=== PATIENT | female | born 1950 | race Caucasian/White ===

== ENCOUNTER 2018-11-05 08:21 | Day surgery (SDC) | payer MEDICARE, BC ==
[~2018-11-05] VITALS: Ht 167.6 cm; Wt 58.1 kg
[~2018-11-05 08:21] MED LIST: BENTYL20 MG; DAILY VITAMIN1 EAC2 PO; FISH OIL 1,0001 EAC1 PO; FLUTICASONE PRO16 GM NAS; LIPITOR20 MG PO; LOTRONEX0.5 MG PO; PANTOPRAZOLE SO40 MG PO; SUCRALFATE1 GM PO; VIBERZI75 MG PO; VITAMIN D32000 UNIT PO; ZOCOR40 MG PO; ZYRTEC10 MG PO; [UNRECOGNIZED DRUG - OTHER] PO
[2018-11-05] MEDS ORDERED: PRESERVISION A1 EAC1 PO (08:38)
[2018-11-05] MEDS ORDERED: OMEGA 3 FISH O1 EACH PO (08:39)
[2018-11-05] MEDS ORDERED: CENTRUM SILVER1 EAC3 PO (08:39)
[2018-11-05] MEDS ORDERED: VITAMIN D35000 UNIT PO (08:40)
--- NOTE | 2018-11-05 10:16 | NUR ---
11/05/18 1016 Izzy Fuentes 1013-PATIENT ARRIVED TO PACU ON 3L NC PLACED ON 2L NC RR EVEN. PATIENT REACTIVE TO VOICE OPENS EYES ENCOURAGED TO PASS GAS. PATIENT LAYING LEFT LATERAL ABDOMEN SOFT
--- NOTE | 2018-11-06 09:27 | OR ---
[facility] [address] [place], [place] [address] Signed DATE OF OPERATION: 11/05/2018 SURGEON: Jennifer Kaba MD PREOPERATIVE DIAGNOSES: 1. Personal history of colonic polyps 2012. 2. Diverticulosis. 3. Irritable bowel syndrome with intermittent diarrhea. POSTOPERATIVE DIAGNOSES: 1. 4 mm rectal polyps x2 at 6 cm. 2. Minimal to moderate sigmoid diverticulosis. PROCEDURE: Colonoscopy with hot biopsy. ESTIMATED BLOOD LOSS: None. INDICATIONS: Leticia is a 68-year-old female, who had an adenomatous polyp removed from her colon back in 2012. She is known to have moderate sigmoid diverticulosis. She gives no family history of colon cancer or polyps. In the meantime, she has no lower GI complaints. She returns now for followup. I gave her a pamphlet in the office on colonoscopy and we looked at that together along with the risks including, but not limited to gas bloating, crampy abdominal pain, bleeding, perforation, requiring surgery, and missed diagnosis. We also discussed the need for IV conscious sedation. She had expressed understanding and wished to proceed. PROCEDURE NOTE: Leticia was taken into the endoscopy suite and placed in the left lateral decubitus position. She was given 150 mcg of fentanyl and 9 mg of Versed to cover the case. A digital rectal exam was performed and this was unremarkable. The adult colonoscope was then introduced and advanced under direct visualization of camera without difficulty. Her prep was good. She has a long redundant colon and it took some extra sedation and extra abdominal compression with carefully passing the scope back and forth until we were into the cecum itself. She had very minimal liquid stool, which we were able to irrigate out quite nicely. We could easily see the lovelock's foot and the appendiceal orifice along with the ileocecal valve. The scope was then slowly withdrawn. She does have moderate sigmoid diverticulosis. Again, they were moderate in size, moderate in Electronically Signed By: JENNIFER KABA MD 11/06/18 0927 PATIENT NAME: LETICIA LUNDBERG OPERATIVE REPORT DATE OF : 48 REPORT #: [id number] PHYSICIAN: JENNIFER KABA MD PCP: FANNIE THOMSON MD REPORT IS CONFIDENTIAL AND NOT TO BE RELEASED WITHOUT AUTHORIZATION [facility] [address] [place] [id number] Signed number, and scattered about. She has quite a bit of redundancy throughout the entire colon. Once in the rectum, she had two tiny polyps just above the anal canal. We removed those easily with hot biopsy forceps. Upon retroflexion of the scope, there was no additional pathology noted above the anal canal. After this, the gas was suctioned out and the colonoscope removed. Leticia tolerated the procedure quite well. RECOMMENDATIONS: Leticia will follow up in my office in 7 to 14 days to review her pathology results. Jennifer Kaba MD ALB/MODL /[id number] cc: MD Dr. Fannie Lim Copies: JENNIFER KABA MD ~ Electronically Signed By: JENNIFER KABA MD 11/06/18 0927 PATIENT NAME: LETICIA LUNDBERG OPERATIVE REPORT DATE OF : 48 REPORT #: [id number] PHYSICIAN: JENNIFER KABA MD PCP: FANNIE THOMSON MD REPORT IS CONFIDENTIAL AND NOT TO BE RELEASED WITHOUT AUTHORIZATION
== END 2018-11-05 11:15 | disposition home or self-care (01) ==
LOC: OPS 08:21 → DS 08:21 → OPS 11:15
PROVIDERS: Colon & Rectal Surgery
PROC: 0DBP8ZZ Excision of Rectum, Via Natural or Artificial Opening Endoscopic (ICD-10-PCS; principal; 2018-11-05 09:45)
DX: Z12.11 Encounter for screening for malignant neoplasm of colon (principal); K62.1 Rectal polyp; K57.30 Diverticulosis of large intestine without perforation or abscess without bleeding; I10 Essential (primary) hypertension; E78.00 Pure hypercholesterolemia, unspecified; M19.90 Unspecified osteoarthritis, unspecified site; F17.210 Nicotine dependence, cigarettes, uncomplicated; Z88.0 Allergy status to penicillin; Z98.890 Other specified postprocedural states; Z79.899 Other long term (current) drug therapy; Z86.010 Personal history of colon polyps
CPT/HCPCS: 88305; 99153; G0500; J2250; J3010; J7120

== ENCOUNTER 2020-03-21 08:18 | Day surgery (SDC) | payer MEDICARE, BC ==
[~2020-03-21] VITALS: Ht 165.1 cm; Wt 55.3 kg
[~2020-03-21 08:18] MED LIST changes: +CALCIUM + D3 E1 EACH PO; +CENTRUM SILVER1 EAC3 PO; +CHANTIX1 MG PO; +FOSAMAX70 MG PO; +OMEGA 3 FISH O1 EACH PO; +OMEPRAZOLE20 MG PO; +PRESERVISION A1 EAC1 PO; +PRESERVISION A1 EAC3 PO; +VITAMIN D35000 UNIT PO
[2020-03-21] MEDS ORDERED: TYLENOL EXTRA500 MG PO (08:34)
--- NOTE | 2020-03-21 10:14 | NUR ---
03/21/20 1014 Mimi Sampson 1011 PATIENT ARRIVES TO PACU AWAKE, BUT DROWSY. RESP EVEN AND UNLABORED. NC 2L TURNED OFF ON ARRIVAL TO PACU. PATIENT DENIES PAIN OR NAUSEA.
--- NOTE | 2020-03-22 07:46 | OR ---
[facility] [address] [place], [place] [address] Signed DATE OF OPERATION: 03/21/2020 SURGEON: Jennifer Kaba MD PREOPERATIVE DIAGNOSES: 1. Epigastric abdominal pain. 2. Irritable bowel syndrome. 3. Diarrhea. 4. Anorexia. 5. Gastroesophageal reflux disease. POSTOPERATIVE DIAGNOSIS: Mild gastritis. PROCEDURES: EGD with CLOtest and biopsies of the duodenum, pyloric bulb, antrum, and distal esophagus. ESTIMATED BLOOD LOSS: None. INDICATIONS: Leticia is a 69-year-old female, who was asked to see me for upper endoscopy. She has been having epigastric abdominal pain. She said it is usually worse with in 20 to 30 minutes of eating a meal. Her gallbladder ultrasound was unremarkable. The HIDA scan was also unremarkable. Her gallbladder ejection fraction was actually 83% without reproduction of symptoms. She also uses Prilosec for acid reflux. She had several colonoscopies and never had an upper endoscopy. She said the pain is enough that it has decreased her oral intake. In the office, I gave her a pamphlet on upper endoscopy. We reviewed the nature of the test along with the risks including, but not limited to gas bloating, crampy abdominal pain, bleeding, perforation requiring surgery, and missed diagnosis. We also discussed the need for IV conscious sedation, she had expressed understanding and wished to proceed. DESCRIPTION OF PROCEDURE: Leticia was taken into our endoscopy suite and placed in a supine semi-recumbent position. The posterior oropharynx was anesthetized with Hurricaine spray. A bite block was utilized for the case. She was given a total of 4 mg of Versed and 100 mcg of fentanyl to cover the case. The adult gastroscope was introduced and advanced quite readily out into the third portion of the duodenum under direct visualization of camera without Electronically Signed By: JENNIFER KABA MD 03/22/20 0746 PATIENT NAME: LETICIA LUNDBERG OPERATIVE REPORT DATE OF : 48 REPORT #: [id number] PHYSICIAN: JENNIFER KABA MD PCP: JONA IRELADN DO REPORT IS CONFIDENTIAL AND NOT TO BE RELEASED WITHOUT AUTHORIZATION [facility] [address] [place], [place] [address] Signed difficulty. We took a biopsy of the duodenum for the history of diarrhea. We also took a biopsy of the pyloric channel in the antrum for pathologic review. She may have some very mild gastritis. Mostly appears atrophic. We took an additional biopsy from the antrum for CLOtest. Upon retroflexion of scope, we did not see a hiatal hernia. There was no gastric or esophageal varices. No ulcerations. The scope was withdrawn up through the GE junction, which was compliant without stricture. Very minimal disruption to her Z-line. No Rodriguez's mucosa. Really, no distal, middle and upper esophagitis. We went ahead and took an additional biopsy of the distal esophagus for pathologic review given her history of acid reflux. After this, the gas was suctioned out and the gastroscope removed. Leticia tolerated the procedure quite well. RECOMMENDATIONS: I will see Leticia back in my office in 7 to 14 days to review her results. Jennifer Kaba MD ALB/MODL /[id number] cc: MD Jona Lim DO Copies: JENNIFER KABA MD, ARIAN DO ~ Electronically Signed By: JENNIFER KABA MD 03/22/20 0746 PATIENT NAME: LETICIA LUNDBERG OPERATIVE REPORT DATE OF : 48 REPORT #: [id number] PHYSICIAN: JENNIFER KABA MD PCP: JONA IRELAND DO REPORT IS CONFIDENTIAL AND NOT TO BE RELEASED WITHOUT AUTHORIZATION
--- NOTE | 2020-03-22 14:40 | PATH ---
[facility] [address] [place], [place] [address] Signed SPECIMEN(S): A DUODENAL BIOPSY SPECIMEN(S): B PYLORIC BULB SPECIMEN(S): C ANTRUM/ANTRAL BIOPSY SPECIMEN(S): D LOWER ESOPHAGUS SPECIMEN SOURCE: A. DUODENAL BIOPSY B. PYLORIC BULB C. ANTRUM/ANTRAL BIOPSY D. LOWER ESOPHAGUS CLINICAL HISTORY: Abdominal pain, reflux, diarrhea. DX: Mild gastritis MICROSCOPIC DESCRIPTION: Histologic sections of all submitted blocks are examined by light microscopy. These findings, together with the gross examination, support the pathologic diagnosis. FINAL PATHOLOGIC DIAGNOSIS: A. Duodenum, biopsy: - Duodenal mucosa with no histopathologic abnormality. - Negative for dysplasia or malignancy. B. Stomach, "pyloric bulb", biopsy: - Duodenal mucosa with mild superficial mucosal hemorrhage. - Negative for Helicobacter organisms on HE stain. - Negative for dysplasia or malignancy. C. Stomach, antrum, biopsy: - Antral mucosa with mild chronic, inactive gastritis. - Negative for Helicobacter organisms on HE stain. - Negative for dysplasia or malignancy. D. Esophagus, lower, biopsy: - Squamous mucosa with minimal chronic inflammation and reactive epithelial changes, suggestive of reflux esophagitis. - Negative for intestinal metaplasia, dysplasia, or malignancy. NAL:cml:C2NR GROSS DESCRIPTION: Four specimens are received in four containers, labeled "SF." A. The specimen, labeled "SF, 1," and designated on the requisition "duodenal," is received in formalin and consists of one almanza soft tissue fragment that measures 0.4 cm in greatest dimension. The PATIENT NAME: BRANDON LUNDBERG PATHOLOGY DATE OF : 48 REPORT #: [id number] PHYSICIAN: JIM MORENO PCP: EVE IRELAND DO REPORT IS CONFIDENTIAL AND NOT TO BE RELEASED WITHOUT AUTHORIZATION [facility] [address] [place], [place] [address] Signed specimen is entirely submitted in cassette (A1). B. The specimen, labeled "SF, 2," and designated on the requisition "pyloric bulb," is received in formalin and consists of one almanza soft tissue fragment that measures 0.3 cm in greatest dimension. The specimen is entirely submitted in cassette (B1). C. The specimen, labeled "SF, 3," and designated on the requisition "antrum," is received in formalin and consists of one almanza soft tissue fragment that measures 0.3 cm in greatest dimension. The specimen is entirely submitted in cassette (C1). D. The specimen, labeled "SF, 4," and designated on the requisition "lower esophagus," is received in formalin and consists of one almanza soft tissue fragment that measures 0.3 cm in greatest dimension. The specimen is entirely submitted in cassette (D1). AT (under the direct supervision of a pathologist) The Gross Description was prepared using a voice recognition system. The report was reviewed for accuracy; however, sound-alike word errors, addition and/or deletions may occur. If there is any question about this report, please contact Client Services. PERFORMING LABORATORY: The technical component was performed by [facility], [address] [place] [id number] (Transportation Program Director: Diana Zabala MD; CLIA# [id number]). [facility], [address] [address] (IA# [id number]). Diagnostician: Gabriella Serrano MD Pathologist Electronically Signed 03/22/2020 Copies: ~ PATIENT NAME: BRANDON LUNDBERG PATHOLOGY DATE OF : 48 REPORT #: [id number] PHYSICIAN: JIM MORENO PCP: EVE IRELAND DO REPORT IS CONFIDENTIAL AND NOT TO BE RELEASED WITHOUT AUTHORIZATION
== END 2020-03-21 10:48 | disposition home or self-care (01) ==
LOC: OPS 08:18 → DS 08:18 → OPS 09:15 → DS 09:45 → OPS 10:48
PROVIDERS: Colon & Rectal Surgery
PROC: 0DB78ZX Excision of Stomach, Pylorus, Via Natural or Artificial Opening Endoscopic, Diagnostic (ICD-10-PCS; 2020-03-21)
PROC: 0DB38ZX Excision of Lower Esophagus, Via Natural or Artificial Opening Endoscopic, Diagnostic (ICD-10-PCS; 2020-03-21)
PROC: 0DB98ZX Excision of Duodenum, Via Natural or Artificial Opening Endoscopic, Diagnostic (ICD-10-PCS; principal; 2020-03-21 09:15)
DX: K29.51 Unspecified chronic gastritis with bleeding (principal); K20.9 Esophagitis, unspecified; I10 Essential (primary) hypertension; K21.9 Gastro-esophageal reflux disease without esophagitis; F17.210 Nicotine dependence, cigarettes, uncomplicated; Z79.899 Other long term (current) drug therapy; Z88.0 Allergy status to penicillin; Z91.040 Latex allergy status
CPT/HCPCS: 86677; 99153; G0500; J2250; J3010; J7121

== ENCOUNTER 2024-05-19 06:43 | Day surgery (SDC) | payer MEDICARE, BC ==
[2024-05-17 10:32] VITALS: BP 121/68
[~2024-05-19] VITALS: Ht 165.1 cm; Wt 68.2 kg
[~2024-05-19 06:43] MED LIST changes: +CAL MAG ZINC +1 EACH PO; +CELEXA20 MG PO; +Q SORB CO Q PO; +TYLENOL EXTRA500 MG PO
[2024-05-19] MEDS ORDERED: IBLOOD GLUCOSE TEST STRIP 1 EA TEST VI PRN ×2 (07:00→08:15)
[2024-05-19] MEDS ORDERED: LACTATED RINGER'S 1,000 ML IV SCH (07:00)
[2024-05-19] MEDS ORDERED: LIDOCAINE HCL 1% 5 ML SDV INJ ONE (07:00)
[2024-05-19] MEDS ORDERED: PRESERVISION A1 EAC7 PO (07:02)
[2024-05-19] MEDS ORDERED: CALCIUM500 MG PO (07:02)
[2024-05-19 07:12] VITALS: BP 135/73
[2024-05-19] MEDS ORDERED: propofoL 200 MG/20 ML VIAL ONE (07:45)
[2024-05-19] MEDS ORDERED: LIDOCAINE HCL 2% 5 ML SDV ONE (07:45)
[2024-05-19] MEDS ORDERED: NALOXONE HCL 0.4 MG SYR IV PRN (08:15)
[2024-05-19] MEDS ORDERED: fentaNYL citrate 50 MCG/ML SDV IV PRN (08:15)
--- NOTE | 2024-05-19 09:07 | NUR ---
05/19/24 09 Carol Ann Case 0902-PT TO PACU IN LL POSITION. EYES CLOSED. PT RESPONDS TO VERBAL AND TACTILE STIMULI, DENIES PAIN AND FALLS QUICKLY BACK TO SLEEP. BREATHING EASY AND UNLABORED. SPO2 >95% ON 2 L O2 VIA NC. PT ENCOURAGED TO PASS GAS. 0907-PT RESTING EYES CLOSED. BREATHING EASY AND UNLABORED. SPO2 >95% ON 2 L O2 VIA NC.
[2024-05-19 09:34] VITALS: BP 139/62
--- NOTE | 2024-05-20 07:27 | OR ---
[facility] [address] [place], [place] [address] Signed DATE OF OPERATION: 05/19/2024 SURGEON: Jennifer Kaba MD PREOPERATIVE DIAGNOSES: 1. Chronic irritable bowel syndrome with diarrhea. 2. Personal history of colonic polyps in 2013 at the age of 62. 3. Long redundant colon. 4. Diverticulosis. POSTOPERATIVE DIAGNOSES: 1. Long redundant colon. 2. Minimal to moderate left-sided diverticulosis. 3. Minimal to moderate internal hemorrhoids. PROCEDURE: Colonoscopy without biopsy into the transverse colon. ESTIMATED BLOOD LOSS: None. INDICATIONS: Leticia is a 73-year-old female, asked to see me for a followup colonoscopy. She has no lower GI complaints currently. There is mention of irritable bowel syndrome with intermittent diarrhea for many years in her progress notes. She has no family history of colon cancer or polyps. She has been through three prior colonoscopies. I helped her with a serrated adenomatous polyp in 2012 at the age of 62. She also has a long redundant colon. She takes a large amount of Versed and fentanyl. She is currently on citalopram each day. We felt she would be much better served and much safer to have monitored anesthesia care with propofol infusion given her above situation. In the office, I had given her a pamphlet on colonoscopy. She is familiar with the test. There is risk including, but not limited to gas bloating, crampy abdominal pain, bleeding, perforation requiring surgery, and missed diagnosis. We also reviewed the written instructions for a bowel prep line by line. We had also gone through her medications. She is aware that an adult person has to take her home afterwards. She had expressed understanding and wished to proceed. DESCRIPTION OF PROCEDURE: Letiica was taken into our endoscopy suite and placed in the left lateral decubitus position. She was given monitored anesthesia care with propofol infusion per our nurse Electronically Signed By: JENNIFER KABA MD 05/20/24 0727 PATIENT NAME: LETICIA LUNDBERG OPERATIVE REPORT DATE OF : 48 REPORT #: [id number] PHYSICIAN: JENNIFER KABA MD PCP: EVE IRELAND DO REPORT IS CONFIDENTIAL AND NOT TO BE RELEASED WITHOUT AUTHORIZATION [facility] [address] [place], [place] [address] Signed manager gyn. A digital rectal exam was performed. This was unremarkable. There were no external hemorrhoids. She had good sphincter tone. There were no masses. The adult colonoscope was introduced and advanced under direct visualization of the camera. Once again, she has a very long redundant left and transverse colon. We could actually see the tip of our camera as the light traveled all around her abdomen. We increased the propofol and we placed her in the supine position. We had two nurses helping with abdominal compression. We went back into the left lateral decubitus position. We never did definitively see the hepatic flexure. We could feel the scope and what we thought would obviously be her transverse colon. The scope was then slowly withdrawn at that point. Her prep had been quite excellent. We took several pictures throughout for photodocumentation. She indeed has left-sided diverticulosis. They are moderate in size, few to moderate in number and scattered about. Once in the rectum, the scope was retroflexed and she does have moderate internal hemorrhoid columns. After this, the gas was suctioned out and the colonoscope removed. Leticia tolerated the procedure quite well. RECOMMENDATIONS: I will see Leticia back in my office in 7 to 14 days. We will review the findings with her. She should undergo a barium enema to evaluate the proximal portion of her colon. Given her current situation, this might be her last colonoscopy unless she had symptoms. Jennifer Kaba MD ALB/MODL /[id number] cc: DO Jennifer Quintana MD Copies: EVE IRELAND ANDREW L MD ~ Electronically Signed By: JENNIFER KABA MD 05/20/24 0727 PATIENT NAME: LETICIA LUNDBERG OPERATIVE REPORT DATE OF : 48 REPORT #: [id number] PHYSICIAN: JENNIFER KABA MD PCP: EVE IRELAND DO REPORT IS CONFIDENTIAL AND NOT TO BE RELEASED WITHOUT AUTHORIZATION
== END 2024-05-19 09:35 | disposition home or self-care (01) ==
LOC: DS 06:43
PROVIDERS: ATTEND Colon & Rectal Surgery
PROC: 0DJD8ZZ Inspection of Lower Intestinal Tract, Via Natural or Artificial Opening Endoscopic (ICD-10-PCS; principal; 2024-05-19 08:15)
DX: K63.89 Other specified diseases of intestine (principal); K57.30 Diverticulosis of large intestine without perforation or abscess without bleeding; K64.8 Other hemorrhoids; K21.9 Gastro-esophageal reflux disease without esophagitis; M81.0 Age-related osteoporosis without current pathological fracture; E78.2 Mixed hyperlipidemia; E55.9 Vitamin D deficiency, unspecified; F17.200 Nicotine dependence, unspecified, uncomplicated; K58.9 Irritable bowel syndrome, unspecified; Z88.0 Allergy status to penicillin; Z91.040 Latex allergy status
CPT/HCPCS: J2001; J2704; J7121